=== PATIENT | male | born 1960 | race Hispanic/Latino ===

== ENCOUNTER 2019-04-13 18:07 | Emergency (ER) | payer BC ==
[~2019-04-13] VITALS: Ht 172.7 cm; Wt 136.1 kg
[~2019-04-13 18:07] MED LIST: LANTUS100 UNITS/ SQ; LEVAQUIN500 MG PO; METFORMIN HCL500 MG PO; METOPROLOL TART25 MG PO; NORCO 5-325 TA1 EACH PO; NOVOLOG100 UNITS1 SQ; OMEPRAZOLE40 MG PO; PANTOPRAZOLE SO40 MG PO; PYLERA CAPSULE1 EACH PO; TRANDATE100 MG PO; VALTREX1000 MG PO
[2019-04-13] MEDS ORDERED: HYDROCODONE BIT/ACETAMINOPHEN 2.5 MG/108MG PER 5 ML SOLUTION PO PRN (19:00)
[2019-04-13 19:08] LABS: BASOPHILS # (AUTO) 0.1 (0.0-0.1); BASOPHILS % 0.5 % (0.0-1.0); EOSINOPHILS # (AUTO) 0.6 (0.0-0.4); EOSINOPHILS % 5.8 % (0.0-6.0); HEMATOCRIT 42.2 % (38.2-49.6); HEMOGLOBIN 14.3 g/dL (14.0-18.0); LYMPHOCYTES # (AUTO) 2.9 (1.0-3.2); LYMPHOCYTES % 30.4 % (18.0-39.1); MEAN CORPUSCULAR HEMOGLOBIN 30.3 pg (28-32); MEAN CORPUSCULAR HGB CONC 33.9 g/dL (31-35); MEAN CORPUSCULAR VOLUME 89.4 fL (81-99); MONOCYTES # (AUTO) 0.7 (0.2-0.8); MONOCYTES % 7.6 % (4.4-11.3); NEUTROPHILS # (AUTO) 5.3 (2.1-6.9); NEUTROPHILS % 55.3 % (38.7-80.0); PLATELET COUNT 237 x10e3/uL (140-360); RED BLOOD COUNT 4.72 x10e6/uL (4.3-5.7); RED CELL DISTRIBUTION WIDTH 13.4 % (11.7-14.4)
[2019-04-13 19:22] LABS: ALBUMIN 3.2 g/dL (3.5-5.0); ALBUMIN/GLOBULIN RATIO 0.7 (0.8-2.0); ANION GAP 17.2 mmol/L (8-16); CALCIUM 9.2 mg/dL (8.4-10.2); CREATININE, SERUM 1.38 mg/dL (0.72-1.25); POTASSIUM 4.2 mmol/L (3.5-5.1)
[2019-04-13] MEDS ORDERED: SODIUM CHLORIDE 0.9% 1000ML 1,000 ML IV STA (19:33)
--- NOTE | 2019-04-13 21:10 | Diagnostic Imaging Report ---
CT SOFT TISSUE NECK W HISTORY: Left neck pain radiates to left face, sore throat, foreign body sensation; throat pain difficulty swallowing COMPARISON: None. TECHNIQUE: Axial CT images were obtained through the neck with intravenous, iodine based contrast. Coronal and sagittal reconstructions obtained from the axial data. One or more of the following dose reduction techniques were used: Automated exposure control, adjustment of the mA and/or kV according to patient size, and/or utilization of iterative reconstruction technique. DISCUSSION: Mildly prominent bilateral parapharyngeal, posterior cervical, and retropharyngeal fat is associated with mild narrowing of the pharynx. The bilateral common carotid, bilateral carotid bulbs, and right internal carotid artery have a retropharyngeal course. The visualized upper aerodigestive tract is otherwise unremarkable. No radiographically significant cervical adenopathy is seen. The thyroid gland is unremarkable. The submandibular and parotid glands are unremarkable. Mild to moderate bilateral carotid bulb calcified plaque is present. The bilateral common carotid, bilateral carotid bulbs, and right internal carotid artery have a retropharyngeal course. The steam setter, parapharyngeal, posterior cervical, and perivertebral spaces are unremarkable. The visualized intracranial compartment and orbits are grossly unremarkable. The paranasal sinuses are clear. There are mild degenerative changes throughout the spine. The upper lungs are unremarkable. IMPRESSION: 1. Mildly prominent bilateral parapharyngeal, posterior cervical, and retropharyngeal fat is associated with mild narrowing of the pharynx. 2. The bilateral carotid arteries have a retropharyngeal course. 3. The visualized upper aerodigestive tract is otherwise unremarkable. 4. No radiographically significant cervical adenopathy. Signed by: Dr. Christian Leger M.D. on 04/13/2019 9:07 PM
[2019-04-14] MEDS ORDERED: IOPAMIDOL 370 MG/ML 200 ML INFUS..BTL INJ ONE (01:19)
[2019-04-14] MEDS ORDERED: SODIUM CHLORIDE 0.9% 50ML 50 ML ONE (01:19)
== END 2019-04-13 21:31 | disposition home or self-care (01) ==
LOC: ER 18:07
DX: J02.9 Acute pharyngitis, unspecified (principal); Z88.8 Allergy status to other drugs, medicaments and biological substances; I10 Essential (primary) hypertension; E11.9 Type 2 diabetes mellitus without complications; K21.9 Gastro-esophageal reflux disease without esophagitis; E78.5 Hyperlipidemia, unspecified; Z79.4 Long term (current) use of insulin
CPT/HCPCS: 36415; 70491; 80053; 85025; 99284; J7030

== ENCOUNTER 2021-01-28 16:10 | Emergency (ER) | payer BC ==
[~2021-01-28] VITALS: Ht 172.7 cm; Wt 136.1 kg
[2021-01-28] MEDS ORDERED: LIDOCAINE 4% PATCH TP SCH (17:45)
[2021-01-28 18:15] LABS: BASOPHILS # (AUTO) 0.1 (0.0-0.1); BASOPHILS % 0.7 % (0.0-1.0); EOSINOPHILS # (AUTO) 0.5 (0.0-0.4); EOSINOPHILS % 6.2 % (0.0-6.0); HEMOGLOBIN 13.3 g/dL (14.0-18.0); LYMPHOCYTES # (AUTO) 2.4 (1.0-3.2); LYMPHOCYTES % 26.8 % (18.0-39.1); MEAN CORPUSCULAR HEMOGLOBIN 31.1 pg (28-32); MEAN CORPUSCULAR HGB CONC 32.4 g/dL (31-35); MONOCYTES # (AUTO) 0.8 (0.2-0.8); MONOCYTES % 8.8 % (4.4-11.3); NEUTROPHILS % 57.3 % (38.7-80.0); PLATELET COUNT 167 x10e3/uL (140-360); RED BLOOD COUNT 4.27 x10e6/uL (4.3-5.7); RED CELL DISTRIBUTION WIDTH 14.4 % (11.7-14.4)
[2021-01-28 18:39] LABS: ALBUMIN 3.3 g/dL (3.5-5.0); ALBUMIN/GLOBULIN RATIO 0.7 (0.8-2.0); ANION GAP 14.6 mmol/L (8-16); CALCIUM 9.5 mg/dL (8.4-10.2); CREATININE, SERUM 2.67 mg/dL (0.72-1.25); POTASSIUM 4.6 mmol/L (3.5-5.1)
[2021-01-28 18:47] LABS: CREATINE KINASE MB 1.2 ng/mL (0-5.0)
[2021-01-28] MEDS ORDERED: SODIUM CHLORIDE 0.9% 1000ML 1,000 ML IV SCH (20:00)
[2021-01-28] MEDS ORDERED: HYDROCODON-ACE1 EAC9 PO (21:09)
[2021-01-29] MEDS ORDERED: ACETAMINOPHEN 325 MG TAB PO PRN (03:00)
[2021-01-29] MEDS ORDERED: POLYETHYLENE GLYCOL 3350 17 GM PACK PO PRN (03:00)
[2021-01-29] MEDS ORDERED: HYDRALAZINE HCL 20 MG/ML VIAL IV PRN (03:00)
[2021-01-29] MEDS ORDERED: ONDANSETRON HCL INJ 2MG/ML 2ML 2 MG/ML VIAL IV PRN (03:00)
[2021-01-29] MEDS ORDERED: DOCUSATE SODIUM 100 MG CAP PO SCH (09:00)
== END 2021-01-28 20:50 | disposition home or self-care (01) ==
LOC: ER 16:50 → ERHOLD 19:56 → UNDOADMOB 19:56
DX: N17.9 Acute kidney failure, unspecified (principal); R07.81 Pleurodynia; I10 Essential (primary) hypertension; E11.9 Type 2 diabetes mellitus without complications; K21.9 Gastro-esophageal reflux disease without esophagitis; E78.5 Hyperlipidemia, unspecified; Z90.49 Acquired absence of other specified parts of digestive tract; Z88.8 Allergy status to other drugs, medicaments and biological substances
CPT/HCPCS: 36415; 71101; 80053; 82550; 82553; 83690; 84484; 85025; 99284